=== PATIENT | female | born 1935 | race Caucasian/White ===

== ENCOUNTER → 2019-05-05 | Outpatient (CLI) | payer MEDICARE | END | disposition home or self-care (01) | LOC: CFH 10:28 | PROVIDERS: ATTEND Nurse Practitioner Family | DX: J34.2 Deviated nasal septum (principal); J32.9 Chronic sinusitis, unspecified; I10 Essential (primary) hypertension; D72.829 Elevated white blood cell count, unspecified | CPT/HCPCS: 70486 ==

== ENCOUNTER 2019-06-08 09:46 | Day surgery (SDC) | payer MEDICARE ==
[~2019-06-08] VITALS: Ht 162.6 cm; Wt 65.4 kg
[2019-06-08 10:24] VITALS: BP 125/82
[2019-06-08] MEDS ORDERED: LACTATED RINGERS 1,000 ML IV SCH (10:27)
[2019-06-08] MEDS ORDERED: SODIUM CHLORIDE 0.9% 1,000 ML IV SCH (10:27)
[2019-06-08] MEDS ORDERED: PLEASE ENTER ALLERGIES MC SCH (11:00)
[2019-06-08 11:03] LABS: MEAN CORPUSCULAR HEMOGLOBIN 30.2 pg (27.0-34.8); MEAN CORPUSCULAR HGB CONC 33.2 g/dL (32.4-35.8); MEAN CORPUSCULAR VOLUME 90.9 fL (80-100); MEAN PLATELET VOLUME 7.9 fL (7.4-10.4); PLATELET COUNT 385 x10^3/uL (130-400); RED BLOOD COUNT 4.51 x10^6/uL (3.82-5.3); RED CELL DISTRIBUTION WIDTH 16.3 % (9.6-15.2)
[2019-06-08 11:38] LABS: MD YES
[2019-06-08 11:42] LABS: EOS#(MANUAL) 0.33 x10^3/uL (0.0-0.4); EOS% (MANUAL) 2 % (1-7); LYMPH#(MANUAL) 7.68 x10^3/uL (1-3.4); LYMPHS% (MANUAL) 46 % (22-44); MONOS#(MANUAL) 0.33 x10^3/uL (0.3-2.7); MONOS% (MANUAL) 2 % (2-9); REACTIVE LYMPHS # (MANUAL) 0.84 x10^3/uL (0-0); REACTIVE LYMPHS % (MANUAL) 5 % (0-0); SEG#(MANUAL) 7.52 x10^3/uL (1.8-6.8); SEGS% (MANUAL) 45 % (42-75)
[2019-06-08 11:43] LABS: ANISOCYTOSIS 1+
[2019-06-08 11:44] LABS: <PLATELET ESTIMATE> ADEQUATE; <PLT MORPHOLOGY> NORMAL PLT MORPH; SMUDGE CELLS 1+
[2019-06-08] MEDS ORDERED: MIDAZOLAM 1 MG/ML, 5ML ONE ×2 (12:16)
[2019-06-08] MEDS ORDERED: FENTANYL PF 100 MCG/2ML ONE (12:16)
[2019-06-08] MEDS ORDERED: FLUMAZENIL 0.1 MG/1 ML, 5ML ONE (12:17)
[2019-06-08] MEDS ORDERED: NALOXONE 1 MG/ML, 2ML ONE (12:17)
== END 2019-06-08 14:40 | disposition home or self-care (01) ==
LOC: OUT 09:46
PROVIDERS: ATTEND Pathology Hematology
DX: C91.10 Chronic lymphocytic leukemia of B-cell type not having achieved remission (principal); I10 Essential (primary) hypertension; M06.9 Rheumatoid arthritis, unspecified; J45.909 Unspecified asthma, uncomplicated; Z79.899 Other long term (current) drug therapy; Z87.891 Personal history of nicotine dependence; Z88.2 Allergy status to sulfonamides; Z85.828 Personal history of other malignant neoplasm of skin; Z90.710 Acquired absence of both cervix and uterus; Z98.890 Other specified postprocedural states; Z80.0 Family history of malignant neoplasm of digestive organs
CPT/HCPCS: 36415; 38222; 77012; 85025; 85060; 85097; 88237; 88264; 88280; 88305; 88311; 88313; 88341; 88342; 88360; 99156; 99157; J2250; J3010; J2310